=== PATIENT | female | born 1990 | race Caucasian/White ===

== ENCOUNTER 2019-04-27 00:56 | Emergency (ER) | payer MEDICAID, OTHER ==
[2019-04-27] MEDS: KETOROLAC 30 MG INJ IM (02:04)
== END 2019-04-27 07:07 | disposition home or self-care (01) ==
LOC: FTE 00:56
DX: N63.10 Unspecified lump in the right breast, unspecified quadrant (principal)
CPT/HCPCS: 76642; 81025; 96372; 99285-25